=== PATIENT | male | born 1985 | race Caucasian/White ===

== ENCOUNTER 2017-03-03 12:11 | Emergency (ER) | payer OTHER ==
[~2017-03-03] VITALS: Ht 177.8 cm; Wt 97.5 kg
[~2017-03-03 12:11] MED LIST: ALPRAZOLAM0.5 M3 PO; ALPRAZOLAM0.5 M4 PO; AMOXICOT500 MG PO; AMOXIL500 MG PO; ATENOLOL25 M1 PO; ATENOLOL25 MG PO; ATENOLOL50 M1 PO; ATENOLOL50 MG PO; BACTRIM DS 8001 TAB PO; CATAPRES0.2 MG PO; CLEOCIN HCL300 M1 PO; CLINDAMYCIN HY300 MG PO; CLONIDINE HCL0.2 M1 PO; CLONIDINE HYDR0.2 MG PO; CLONIDINE0.2 MG PO; ESCITALOPRAM20 MG PO; FUROSEMIDE80 MG PO; GLIPIZIDE-METF1 EAC2 PO; IBUPROFEN800 M1 PO; IBUPROFEN800 MG PO; JANUVIA100 M1 PO; LASIX20 MG PO; LEXAPRO20 M1 PO; METFORMIN HYDR750 MG PO; METHADONE HCL5 MG PO; MOBIC15 M1 PO; MOTRIN800 MG PO; NICOTINE PATCH1 EAC1 TOP; NICOTINE PATCH1 EAC2 TOP; NORVASC 5MG TAB5 MG PO; RITALIN10 MG PO; SIMVASTATIN40 MG PO; TRAMADOL50 MG PO; TRAZODONE HCL100 M1 PO; TRAZODONE HCL100 MG PO; VICODIN 5-3001 EACH PO; ZESTORETIC 20-1 EAC1 PO; ZITHROMAX 500M500 MG PO; ZOLPIDEM TARTRA10 M1 PO
[2017-03-03 12:54] LABS: ABSOLUTE BASOPHIL COUNT 0.2 /CUMM (0.0-0.2); ABSOLUTE EOSINOPHIL COUNT 0.2 /CUMM (0.0-0.7); ABSOLUTE GRANULOCYTE CT 7.4 /CUMM (1.4-6.5); ABSOLUTE LYMPH COUNT 3.8 /CUMM (1.2-3.4); ABSOLUTE MONOCYTE COUNT 0.7 /CUMM (0.10-0.60); BASOPHIL % 1.3 % (0.0-2.0); GRANULOCYTE % 60.1 % (42.2-75.2); HEMATOCRIT 38.2 % (42-52); MEAN CORPUSCULAR HGB 29.5 PG (27.0-31.0); MEAN CORPUSCULAR HGB CONC 34.1 G/DL (33.0-37.0); MEAN CORPUSCULAR VOLUME 86.5 FL (80.0-94.0); MEAN PLATELET VOLUME 8.9 FL (7.4-10.4); PLATELET COUNT 209 /CUMM (130-400); RBC DISTRIBUTION WIDTH 12.8 % (11.5-14.5); RED BLOOD CELL CT 4.42 /CUMM (4.70-6.10); WHITE BLOOD CELL COUNT 12.2 /CUMM (4.8-10.8)
--- NOTE | 2017-03-03 15:53 | ED GI/GU/ABDOMINAL COMPLAINT ---
History of Present Illness General Chief Complaint: Abdominal Pain/Flank Pain Stated Complaint: ABD PAIN X4DAYS Source: patient Exam Limitations: no limitations Vital Signs & Intake/Output Vital Signs & Intake/Output Vital Signs Date Time Temp Pulse Resp B/P B/P Pulse O2 O2 Flow FiO2 Mean Ox Delivery Rate 03/03 1831 97.1 84 16 130/78 96 Room Air 03/03 1617 Room Air 03/03 1546 96.9 88 16 122/78 97 Room Air 03/03 1215 96.4 84 15 127/75 95 Room Air Room Air Allergies Coded Allergies: No Known Allergies (03/03/17) Reconcile Medications Alprazolam 0.5 MG TABLET 1 TAB PO 4 TIMES/DAY ANXIETY (Reported) Atenolol 25 MG TABLET 1 TAB PO QHS BP (Reported) Atenolol 50 MG TABLET 1 TAB PO QAM BP (Reported) Clindamycin HCl (Cleocin HCl) 300 MG CAPSULE 1 CAP PO TID GUM ABSCESS Clonidine (Catapres) 0.2 MG TABLET 1 TAB PO BID BP (Reported) Escitalopram Oxalate (Lexapro) 20 MG TABLET 10 MG PO DAILY DEPRESSION ( Reported) Glipizide/Metformin HCl (Glipizide-Metformin 5-500 MG) 1 EACH TABLET 1 TAB PO BID DIABETES (Reported) Hydrocodone/Acetaminophen (Vicodin 5-300 MG Tablet) 5 MG-300 MG TABLET 1 TAB PO BID PRN PAIN Ketorolac Tromethamine 10 MG TABLET 1 TAB PO TID PRN PAIN Meloxicam (Mobic) 15 MG TABLET 1 TAB PO DAILY PRN PAIN Methadone HCl 5 MG TABLET 135 MG PO BIDP PRN CHRONIC PAIN (Reported) Methylphenidate Hydrochloride (Ritalin) 10 MG TABLET 1 TAB PO BID MENTAL STATUS (Reported) AT 6 AM AND 1 PM Nicotine (Nicotine Patch) 1 EACH PATCH.TD24 1 PAT TOP DAILY smoking DO NOT SMOKE WITH THE PATCH ON PLEASE. Sitagliptin Phosphate (Januvia) 100 MG TABLET 1 TAB PO DAILY DIABETES ( Reported) Trazodone HCl 100 MG TABLET 1 TAB PO QPM SLEEP (Reported) Zolpidem Tartrate 10 MG TABLET 1 TAB PO QPMP SLEEP (Reported) Triage Note: PT TO ED FOR C/C OF BILATERAL UPPER ABD PAIN THAT STARTED 3 DAYS AGO. PT TRIED ADVIL WITHOUT RELIEF. +VOMTED X 1 EPISODE YESTERDAY. DENIES DIARRHEA. DENIES S/S. AFEBRILE IN TRIAGE. Triage Nurses Notes Reviewed? yes Onset: Gradual Duration: getting worse Timing: recent history Quality/Severity: cramping, severe Severity Numbers: 7 Location: epigastric Radiation: back Activities at Onset: none HPI: Patient is a 31-year-old male with a past medical history of type 2 diabetes on metformin, HTN, HLD who presents emergency room with concerns of a four-day history of gradually worsening epigastric abdominal pain with radiation in the back is made worse with eating patient yesterday had 1 episode of nonbloody nonbilious emesis however patient was able to the oatmeal prior to arrival. Denies any significant NSAID use or alcohol use. Denies any fever chills chest pain shortness of breath for current nausea or vomiting. (Edwar Marcos) Past History Travel History Traveled to [place] past 21 day No Medical History Any Pertinent Medical History? see below for history Neurological: migraine EENT: NONE Cardiovascular: hypertension, hyperlipidemia, HEART MURMUR Respiratory: bronchitis, pneumonia Gastrointestinal: NONE Hepatic: NONE Renal: NONE Musculoskeletal: chronic back pain, disk herniation, spinal stenosis, ABSCESS L ARM ABSCESSES TO ARMS/GROIN Psychiatric: anxiety, substance abuse Endocrine: diabetes Blood Disorders: NONE Cancer(s): NONE [employer]/Reproductive: NONE History of MRSA: Yes History of VRE: No History of CDIFF: No Surgical History Surgical History: HERNIA REPAIR SURGICAL REMOVAL OF MRSA Psychosocial History Who do you live with Spouse Services at Home None What is your primary language Danish Tobacco Use: Current Daily Use Daily Tobacco Use Amount/Type: => 5 Cigarettes daily ETOH Use: denies use Illicit Drug Use: denies illicit drug use Family History Family History, If Any: Relation not specified for: Coronary artery disease FH: diabetes mellitus FHx: breast cancer Hx Contributory? No (Edwar Marcos) Review of Systems Review of Systems Constitutional: Reports: no symptoms. EENTM: Reports: no symptoms. Respiratory: Reports: no symptoms. Cardiovascular: Reports: no symptoms. GI: Reports: see HPI, abdominal pain. Genitourinary: Reports: no symptoms. Musculoskeletal: Reports: no symptoms. Skin: Reports: no symptoms. Neurological/Psychological: Reports: no symptoms. Hematologic/Endocrine: Reports: no symptoms. Immunologic/Allergic: Reports: no symptoms. All Other Systems: Reviewed and Negative (Edwar Marcos) Physical Exam Physical Exam General Appearance: no apparent distress, obese Head: atraumatic Eyes: Bilateral: normal appearance. Ears, Nose, Throat, Mouth: hearing grossly normal Neck: normal inspection Respiratory: normal breath sounds, chest non-tender, no respiratory distress Cardiovascular: regular rate/rhythm Gastrointestinal: normal bowel sounds, soft, EPIGASTRIC AND RUQ PAIN NO REBOUND NO RLQ PAIN Extremities: normal range of motion Neurologic/Psych: no motor/sensory deficits, awake Skin: intact, normal color, warm/dry Core Measures ACS in differential dx? No Sepsis Present: No Sepsis Focused Exam Completed? No (Edwar Marcos) Progress Differential Diagnosis: AAA, AMI, appendicitis, biliary colic, bowel obstruction , cholecystitis, diverticulitis, epididymitis, esophageal varices, gastritis, hepatitis, hernia, hemorrhoids, ischemic bowel, inflamm bowel dis, orchitis, pancreatitis, prostatitis, peptic ulcer, PUD/GERD, perforated viscous, pyelonephritis, SBO, testicular torsion, ureterolithiasis, urinary retention, urethritis, UTI/pyelo Plan of Care: Orders Procedure Date/time Status Add-on Test (ER Only) 03/03 1414 Active LIPID PANEL 03/03 1233 Complete HIGH SENSITIVITY CRP 03/03 1233 Complete ETHANOL 03/03 1233 Complete DIRECT LDL 03/03 1233 Complete URINALYSIS 03/03 1221 Complete LIPASE 03/03 1221 Complete COMPREHENSIVE METABOLIC PANEL 03/03 1221 Complete CBC WITHOUT DIFFERENTIAL 03/03 1221 Complete Laboratory Tests 03/03/17 1500: C-React Prot High Sens Cancelled 03/03/17 1233: Anion Gap 15, Estimated GFR > 60, BUN/Creatinine Ratio 28.3 H, Glucose 344 H, Calcium 9.8, Total Bilirubin 0.3, AST 59, ALT 116 H, Alkaline Phosphatase 79, C -React Prot High Sens 12.5 H, Total Protein 8.4 H, Albumin 4.4, Globulin 4.0, Albumin/Globulin Ratio 1.1, Triglycerides 535 H, Cholesterol 186, LDL Cholesterol Direct 81.21, LDL Cholesterol, Calc ND, HDL Cholesterol 25 L, Cholesterol/HDL Ratio 7 H, Lipase 4631 H, CBC w Diff MAN DIFF ORDERED, RBC 4.42 L, MCV 86.5, MCH 29.5, MCHC 34.1, RDW 12.8, MPV 8.9, Gran % 60.1, Lymphocytes % 30.9, Monocytes % 5.7, Eosinophils % 2.0, Basophils % 1.3, Absolute Granulocytes 7.4 H, Absolute Lymphocytes 3.8 H, Absolute Monocytes 0.7 H, Absolute Eosinophils 0.2, Absolute Basophils 0.2, Platelet Estimate VERIFIED BY SMEAR, Normocytic RBCs VERIFIED, Normochromic RBCs VERIFIED, Serum Alcohol < 10.0, Urinalysis LIGHT H, Urine Color YEL, Urine Clarity CLEAR, Urine pH 7.0, Ur Specific [place] 1.020, Urine Protein 30 H, Urine Ketones NEG, Urine Nitrite NEG, Urine Bilirubin NEG, Urine Urobilinogen 0.2, Ur Leukocyte Esterase NEG, Ur Microscopic SEDIMENT EXAMINED, Urine RBC 1-3, Urine Hemoglobin NEG, Urine Glucose >=1000 H Patient upon initial presentation was no apparent distress resting comfortably at bedside patient does have right upper quadrant and epigastric pain upon palpation patient's lipase was elevated for concerns of pancreatitis and most likely at this time due to ELEVATED triglycerides Ultrasound will be obtained due to ALT elevation and right upper quadrant pain Ultrasound was obtained no acute findings, discussed disposition plan with patient patient was able tolerate by mouth upon discharge Patient strongly advised to follow-up with gastroenterology Diagnostic Imaging: Viewed by Me: Ultrasound. Radiology Impression: no acute abnormality Initial ED EKG: none Comments: PATIENT: ALLY PAREKH PRESENT AGE: 31 PATIENT ACCOUNT NO: [id number] : 83 LOCATION: [facility] ORDERING PHYSICIAN: Edwar BONILLA SERVICE DATE: 03/03/171601 EXAM TYPE: US - US-LIMITED ABDOMEN EXAMINATION: ABDOMINAL ULTRASOUND LIMITED CLINICAL INFORMATION: Elevated LFTs. Concern for pancreatitis. COMPARISON: 07/23/2016. TECHNIQUE: Real-time imaging of the right upper quadrant abdominal viscera. FINDINGS: PANCREAS: The visualized pancreatic head and body are normal in appearance. The remainder of the pancreas is obscured from visualization by the overlying bowel gas. LIVER: The liver is of normal size and echogenicity without focal lesions nor intrahepatic biliary ductal dilation. GALLBLADDER: Normal. The gallbladder is physiologically distended without evidence of stones, sludge, polyps, wall thickening or pericholecystic fluid. COMMON BILE DUCT: Normal in caliber measuring 0.7 cm in diameter. RIGHT KIDNEY: Normal. No hydronephrosis. No renal calculi or focal parenchymal lesions. The kidney measures 11.7 cm in maximum dimension. FREE FLUID: None. IMPRESSION: Unremarkable limited right upper quadrant ultrasound. DICTATED BY: Mauro Raza MD DATE/TIME DICTATED:03/03/171741 TEST ENGINE MECHANIC:JAMES DATE/TIME TRANSCRIBED:03/03/171741 CONFIDENTIAL, DO NOT COPY WITHOUT APPROPRIATE AUTHORIZATION. (Edwar Marcos) Departure Departure Disposition: HOME OR SELF CARE Condition: Stable Clinical Impression Primary Impression: Pancreatitis Referrals: Dony ACEVES,Brian Santacruz (PCP/Family) Maxime Espinoza MD Additional Instructions: As discussed begin EATING A 24-48 hour consumption of clear liquid diet and bland diet rest bowels, begin the prescription Toradol for pain Follow-up this week with heel sorter Dr. Espinoza if symptoms worsen return to the emergency room. Prescriptions waiting at [place] [facility] Departure Forms: Customer Survey General Discharge Information Prescriptions: Current Visit Scripts Ketorolac Tromethamine 1 TAB PO TID PRN PAIN #15 TAB (Edwar Marcos) PA/TREASURY AGENT Co-Sign Statement Statement: ED Attending supervision documentation- [] I saw and evaluated the patient. I have also reviewed all the pertinent lab results and diagnostic results. I agree with the findings and the plan of care as documented in the PA's/TREASURY AGENT's documentation. [x] I have reviewed the ED Record and agree with the PA's/TREASURY AGENT's documentation. [] Additions or exceptions (if any) to the PAs/TREASURY AGENT's note and plan are summarized below: [] (John Castorena DO)
--- NOTE | 2017-03-03 17:46 | ULTRASOUND REPORT ---
EXAMINATION: ABDOMINAL ULTRASOUND LIMITED CLINICAL INFORMATION: Elevated LFTs. Concern for pancreatitis. COMPARISON: 07/23/2016. TECHNIQUE: Real-time imaging of the right upper quadrant abdominal viscera. FINDINGS: PANCREAS: The visualized pancreatic head and body are normal in appearance. The remainder of the pancreas is obscured from visualization by the overlying bowel gas. LIVER: The liver is of normal size and echogenicity without focal lesions nor intrahepatic biliary ductal dilation. GALLBLADDER: Normal. The gallbladder is physiologically distended without evidence of stones, sludge, polyps, wall thickening or pericholecystic fluid. COMMON BILE DUCT: Normal in caliber measuring 0.7 cm in diameter. RIGHT KIDNEY: Normal. No hydronephrosis. No renal calculi or focal parenchymal lesions. The kidney measures 11.7 cm in maximum dimension. FREE FLUID: None. IMPRESSION: Unremarkable limited right upper quadrant ultrasound.
[2017-03-03] MEDS ORDERED: KETOROLAC TROME10 M1 PO (18:22)
[2017-03-03 18:31] VITALS: BP 130/78
== END 2017-03-03 18:34 ==
LOC: ERH 12:11
PROVIDERS: Emergency Medicine
DX: K85.90 Acute pancreatitis without necrosis or infection, unspecified (principal)
CPT/HCPCS: 81001; 96372; G0480; J1885